=== PATIENT | female | born 1960 | race Caucasian/White ===

== ENCOUNTER → 2016-07-11 | Outpatient (CLI) | payer BC, OTHER ==
[2015-08-23 12:59] VITALS: BP 117/59
[~2016-07-11] MED LIST: NS 100 ML IV 100 ML IV ONE
[2016-07-11 10:08] LABS: CREATININE 0.81 mg/dL (0.55-1.02)
--- NOTE | 2016-07-11 11:21 | CT ---
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 Nonvascular findings: Thyroid gland is normal. Heart size is normal without pericardial effusion. No enlarged mediastinal or hilar lymphadenopathy. The thoracic esophagus is thickened distally with a small sliding hiatal hernia similar to prior exam. The lungs are clear. No pleural effusion or pneum othorax. Central airways are clear. Imaging of the upper abdomen demonstrates gallbladder distension . Vascular findings: The ascending thoracic aorta is normal. There is very mild mural thickening and e nhancement of the transverse and descending thoracic aorta suggesting large vessel vasculitis. There is moderate thickening of the left subclavian vein and its origin which is not significantly change d from prior examination. There is suspected mild thickening of the proximal left common and right b rachiocephalic arteries. Pulmonary artery is normal in caliber without central filling defect. Coron fawad arteries are normal. There is suspected mild stenosis of the origin of the right main pulmonary artery seen on axial image 90 . There is fairly severe narrowing of the proximal celiac arter y just distal to its origin seen best on image 34, series 10 with approximate 75% narrowing. The SMA is widely patent. The infrarenal abdominal aorta demonstrates moderate thickening seen on axial pili ge 108. The at no level is there are aneurysmal dilatation dissection or occlusion. Impression: 1.Moderate proximal left subclavian artery wall thickening and infrarenal abdominal aortic wall thic kening with mild wall thickening of the proximal left common carotid and right brachiocephalic arter ies not significantly changed from prior examination suggesting vasculitis, given lack of surroundin g inflammatory change this does not have CT findings to suggest acuity. 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 2.No acute airspace disease. 3. Incidental findings as described above. Reported By:
== END ==
LOC: RAD 09:27
PROVIDERS: ATTEND Internal Medicine Rheumatology
DX: I77.6 Arteritis, unspecified (principal)
CPT/HCPCS: 36415; 71275; 82565; 84520; A4222

== ENCOUNTER → 2017-04-29 | Outpatient (CLI) | payer BC, OTHER ==
[2015-08-23 12:59] VITALS: BP 117/59
[2017-04-29 13:46] LABS: CREATININE 0.92 mg/dL (0.55-1.02)
--- NOTE | 2017-04-29 15:12 | MRI ---
STUDY: MRI OF THE BRAIN WITHOUT AND WITH GADOLINIUM HISTORY: Migraines and family history of aneurysms. Technique: Multiplanar multi-sequence MRI of the brain was obtained using standard departmental darcy col. Sagittal and axial T1, axial T2, FLAIR, diffusion (DWI/ADC), GRE, and coronal T2 images through the brain were performed. 15 cc of Omniscan was administered intravenously without reported complication following acquisition of informed written consent. Post gadolinium axial and coronal T1 weighted images were also performed and reviewed. Comparison: Brain MRI dated July 06, 2015. Findings: Pre gadolinium brain: The sulci, cisterns and ventricles are age appropriate. There are thin confluen t and scattered punctate foci of T2 prolongation in the periventricular and subcortical white matter of both hemispheres. This is a nonspecific finding which may be seen in a variety clinical conditions including, but not limited to microangiopathy and demyelinating disease in a patient of this age. Th chary findings may also be seen in the setting of migraine headaches and in neurologically normal indiv iduals. There is no evidence of acute territorial infarction, hemorrhage, mass, mass effect, or midline shift . There are no abnormal intra-axial or extra-axial fluid collections. The major intracranial vascular flow voids appear intact. The vertebral arteries are roughly codomina nt. Post gadolinium brain: Following the uneventful administration of intravenous gadolinium, there is no evidence of abnormal parenchymal or leptomeningeal enhancement. IMPRESSION: 1. No evidence of acute intracranial abnormality. 2. Nonspecific white matter change. Clinical correlation is recommended. Reported By:
--- NOTE | 2017-04-29 15:37 | MRI ---
STUDY: MRA OF THE BRAIN HISTORY: Migraines and family history of aneurysms. Comparison: None. Technique: 3D lefa-ya-mulpzz imaging of the intracranial circulation was performed. Findings: 3D moct-yw-blmuot MRA examination shows normal flow related enhancement in the major intracranial art eries. There is no evidence of hemodynamically significant stenosis or aneurysm. Posterior communicat ing arteries are not identified. The vertebral arteries are codominant. IMPRESSION: 1. Normal MRA of the brain. Reported By:
== END ==
LOC: RAD 13:08
PROVIDERS: ATTEND Internal Medicine
DX: I77.89 Other specified disorders of arteries and arterioles (principal); G43.909 Migraine, unspecified, not intractable, without status migrainosus
CPT/HCPCS: 36415; 70544; 70553; 82565; 84520